=== PATIENT | female | born 1995 | race Caucasian/White ===

== ENCOUNTER 2023-01-22 05:27 | Inpatient (IN) | payer OTHER ==
[2023-01-21 11:48] LABS: #Eosinphils 0.1 10x3/uL (0.0-0.5); #Monocytes 0.6 10x3/uL (0.0-1.1); %Basophils 0.3 % (0.0-2.0); %Eosinophils 0.7 % (0.0-6.0); %Lymphocytes 20.1 % (18.0-47.0); %Monocytes 7.9 % (0.0-10.0); %Neutrophils 70.6 % (40.0-75.0); Mean Corpuscular HGB CONC 33.3 g/dL (32.0-36.0); Mean Corpuscular Hemoglobin 29.8 pg (27.0-33.0); Mean Corpuscular Volume 89.4 fl (81.6-98.3); Mean Platelet Volume 10.1 fl (7.4-10.4); Platelet Count 178 10x3/uL (150-450); RBC Distribution Width 12.6 % (11.5-14.5); Red Blood Cell (RBC) Count 3.69 10x6/uL (3.90-5.03); White Blood Cell (WBC) Count 7.1 10x3/uL (3.5-10.5)
[2023-01-21 12:00] LABS: ALT (SGPT) 16 U/L (8-55); AST (SGOT) 13 U/L (5-34); Albumin 3.3 g/dL (3.5-5.0); Alkaline Phosphatase 178 U/L (40-110); Anion Gap 15 mmol/L (10-20); BUN (Urea Nitrogen) 5 mg/dL (7.0-18.7); Bilirubin, Total 1.1 mg/dL (0.2-1.2); Calc. Creatinine Clearance 0 mL/min (70-130); Calcium 7.8 mg/dL (7.8-10.44); Carbon Dioxide 19 mmol/L (22-29); Chloride 106 mmol/L (98-107); Estimated GFR 127; Globulin 2.8 g/dL (2.4-3.5); Glucose 81 mg/dL (70-105); Protein, Total 6.1 g/dL (6.0-8.3); Sodium 136 mmol/L (136-145)
[2023-01-21 12:21] LABS: HBSAg Index 0.14 S/CO (0-0.99); Hep B Surf Ag Non-Reactive S/CO (NonReactive)
[2023-01-21 13:45] LABS: Syphilis Antibody Nonreactive (Nonreactive); Syphilis Antibody Index 0.02 S/CO (<1.00 Non-Reactive)
[2023-01-22] MEDS ORDERED: hydrALAZINE 20 MG/ML VIAL SLOW IVP PRN ×2 (05:46→10:29)
[2023-01-22] MEDS ORDERED: Promethazine HCl 25 MG/ML VIAL IM PRN ×3 (05:46→12:06)
[2023-01-22] MEDS ORDERED: Misoprostol 200 MCG TAB PR PRN ×2 (05:46→10:29)
[2023-01-22] MEDS ORDERED: Bicitra 30 ML UDCUP PO PRN (05:46)
[2023-01-22] MEDS ORDERED: Methylergonovine 0.2 MG/ML VIAL IM PRN ×2 (05:46→10:29)
[2023-01-22] MEDS ORDERED: Ondansetron PF 4 MG/2 ML Vial IVP PRN ×3 (05:46→12:06)
[2023-01-22] MEDS ORDERED: Tranexamic Acid 1,000 MG/10 ML VIAL IVP PRN (05:46)
[2023-01-22] MEDS ORDERED: Carboprost 250 MCG/ML AMP IM PRN (05:46)
[2023-01-22] MEDS ORDERED: Famotidine/PF 20 mg/2ml Vial SLOW IVP PRN (05:46)
[2023-01-22] MEDS ORDERED: Acetaminophen 500 MG TAB PO PRN (05:46)
[2023-01-22] MEDS ORDERED: Lactated Ringer's 1,000 ML IV SCH (06:00)
[2023-01-22] MEDS ORDERED: NS w/ Oxytocin 30 units 500 ML IV SCH ×2 (06:00→10:29)
[2023-01-22] MEDS ORDERED: CEFAZOLIN 2 GM in Sodium Chloride 0.9% 100 ML IVPB SCH (06:00)
[2023-01-22 06:09] VITALS: BMI 28.0
[2023-01-22] MEDS ORDERED: Oxytocin 10 UNITS/ML VIAL ONE (06:53)
[2023-01-22] MEDS ORDERED: Morphine PF 10 MG/10 ML VIAL ONE (06:53)
[2023-01-22] MEDS ORDERED: PHENYLEPHRINE-NS 100 MCG/ML 10 ML SYRINGE ONE (06:53)
[2023-01-22] MEDS ORDERED: Ondansetron PF 4 MG/2 ML Vial ONE (06:54)
[2023-01-22] MEDS ORDERED: diphenhydrAMINE 50 MG/ML VIAL ONE (10:11)
[2023-01-22] MEDS ORDERED: Boostrix 0.5 ML (Tdap) VIAL (>/=7 yrs of age) IM ONE (10:29)
[2023-01-22] MEDS ORDERED: diphenhydrAMINE 25 MG CAP PO PRN (10:29)
[2023-01-22] MEDS ORDERED: Lanolin Ointment 7 GM TUBE TOP PRN (10:29)
[2023-01-22] MEDS ORDERED: Prenatal Vitamin 1 TAB PO SCH (10:45)
[2023-01-22] MEDS ORDERED: Ferrous Sulfate 325 MG TAB PO SCH (10:45)
[2023-01-22] MEDS ORDERED: Meperidine HCl/PF 25 MG/ML VIAL SLOW IVP PRN (12:06)
[2023-01-22] MEDS ORDERED: Fentanyl 100 MCG/2 ML VIAL SLOW IVP PRN (12:06)
[2023-01-22] MEDS ORDERED: Moisturizing Cream (Eucerin) 113 GM JAR TOP PRN (12:06)
[2023-01-22] MEDS ORDERED: Ondansetron HCl/PF 4 MG/2 ML Vial IVP PRN (12:06)
[2023-01-22] MEDS ORDERED: Naloxone HCl 0.4 mg/ml Vial IV PRN (12:06)
[2023-01-22] MEDS ORDERED: Promethazine HCl 25 MG SUPP PR PRN (12:06)
[2023-01-22] MEDS ORDERED: Naloxone HCl 0.4 mg/ml Vial IVP PRN ×2 (12:06)
[2023-01-22] MEDS ORDERED: diphenhydrAMINE 50 MG/ML VIAL IVP PRN (12:06)
[2023-01-22] MEDS ORDERED: Communication Order-Pharmacy FS SCH (12:15)
[2023-01-22] MEDS ORDERED: Ketorolac Tromethamine 30 MG/ML VIAL IVP SCH (12:15)
[2023-01-22] MEDS: Ketorolac Tromethamine 30 MG/ML VIAL IVP PRN ×2 (14:42→21:18)
[2023-01-22] MEDS: Ibuprofen 800 MG TAB PO SCH ×2 (17:12→20:50)
[2023-01-23] MEDS: Ferrous Sulfate 325 MG TAB PO SCH ×3 (00:06→23:02)
[2023-01-23] MEDS: Ketorolac Tromethamine 30 MG/ML VIAL IVP PRN (05:03)
[2023-01-23] MEDS: Ibuprofen 800 MG TAB PO SCH ×3 (05:14→21:48)
[2023-01-23 05:46] LABS: Hemoglobin 10.2 g/dL (12.0-15.5); Mean Corpuscular HGB CONC 32.5 g/dL (32.0-36.0); Mean Corpuscular Volume 92.4 fl (81.6-98.3); Mean Platelet Volume 10.8 fl (7.4-10.4); Platelet Count 150 10x3/uL (150-450); RBC Distribution Width 12.8 % (11.5-14.5)
[2023-01-23] MEDS: Prenatal Vitamin 1 TAB PO SCH (08:43)
[2023-01-23] MEDS: Simethicone Chewable 80 MG TAB PO PRN (21:51)
[2023-01-23] MEDS ORDERED: HYDROcodone/Acetaminophen 5/325 mg Tablet PO PRN ×2 (23:39)
[2023-01-24] MEDS: Ibuprofen 800 MG TAB PO SCH (05:10)
[2023-01-24] MEDS: Simethicone Chewable 80 MG TAB PO PRN (07:29)
[2023-01-24 07:39] VITALS: BP 118/64; TEMP 97.9
[2023-01-24] MEDS: Prenatal Vitamin 1 TAB PO SCH (08:39)
== END 2023-01-24 11:25 | disposition home or self-care (01) | DRG 786 ==
LOC: CSHLD 05:27 → CSHPP 10:56
PROVIDERS: ADMIT Obstetrics & Gynecology; ATTEND Advanced Practice Midwife
PROC: 10D00Z1 Extraction of Products of Conception, Low, Open Approach (ICD-10-PCS; principal; 2023-01-22)
DX: O34.211 Maternal care for low transverse scar from previous cesarean delivery (principal); K83.1 Obstruction of bile duct; O26.62 Liver and biliary tract disorders in childbirth; Z3A.38 38 weeks gestation of pregnancy; Z37.0 Single live birth
CPT/HCPCS: 36415; 51702; 80053; 85025; 85027; 86780; 86850; 86900; 86901; 87340; J1200; J1885; J2274; J2405; J2590; J3490